=== PATIENT | male | born 1995 | race Two or more races ===

== ENCOUNTER 2017-10-07 21:42 | Emergency (ER) | payer MEDICAID ==
[~2017-10-07] VITALS: Ht 172.7 cm; Wt 81.6 kg
--- NOTE | 2017-10-07 21:50 | Emergency Room Report ---
History of Present Illness General Source: Patient Present Illness HPI Is a 21-year-old male with no past medical history. She presents with chief complaint of left leg pain. Onset was acute. He went home and locked himself out so he try to climb on the roof to get inside the house. He slipped and fell onto the concrete pavement. He did not hit his head. He landed with his leg bent on the side. He complaining of pain to the lower extremity. Unable to bear weight. No other injury. Pain is 9 out of 10. Better with holding still. Worse with movement. Allergies: Coded Allergies: No Known Allergies (Unverified , 10/07/17) Patient History Past Medical History: none, see triage record, old chart reviewed Past Surgical History: none Pertinent Family History: none Social History: Denies: smoking Immunizations: other Reviewed Nursing Documentation: PMH: Agreed; PSxH: Agreed Review of Systems Eye: Denies: eye pain, blurred vision ENT: Denies: ear pain, nose congestion, throat swelling Respiratory: Denies: cough, shortness of breath Cardiovascular: Denies: chest pain, palpitations Gastrointestinal: Denies: abdominal pain, diarrhea, nausea, vomiting Musculoskeletal: Reports: joint pain; Denies: back pain Skin: Denies: rash Neurological: Denies: headache, numbness Endocrine: Denies: increased thirst, increased urine Hematologic/Lymphatic: Denies: easy bruising All Other Systems: negative except mentioned in HPI Physical Exam vitals unremarkable Sp02 EP Interpretation: reviewed, normal General Appearance: well appearing, no apparent distress, alert Head: normocephalic, atraumatic Eyes: bilateral eye PERRL, bilateral eye EOMI ENT: hearing grossly normal, normal pharynx Neck: full range of motion, supple, no meningismus Respiratory: chest non-tender, lungs clear, normal breath sounds Cardiovascular #1: regular rate, rhythm, no murmur Gastrointestinal: normal bowel sounds, non tender, no mass, no organomegaly, no bruit, non-distended Musculoskeletal: back normal, normal range of motion, other - Left lower leg: No tenderness to the knee or the ankle. He has tenderness and deformity and edema to the distal fibular area. Sensation normal. Psychiatric: mood/affect normal Skin: warm/dry Procedures Splinting Splinting : Consent: Verbal Location: left lower l Hand-Made Type: plaster Splint: sugar-tong Pre-Proc Neuro Vasc Exam: normal Post-Proc Neuro Vasc Exam: normal Patient Tolerated: Well Complications: None Progress patient also had a short leg posterior splint done in addition a sugar tong splint. Crutches given. Medical Decision Making Diagnostic Impression: Primary Impression: Fibula fracture Qualified Codes: S82.832A - Other fracture of upper and lower end of left fibula, initial encounter for closed fracture ER Course Patient with a fall and the distal fibular fracture. Patient splinted and will be discharged home with orthopedic follow-up. No evidence of any knee or ankle injury. No head injury. Other X-Ray Diagnostic Results Other X-Ray Diagnostic Results : X-Ray ordered: left tib-fib x-rays # of Views/Limited Vs Complete: 2 View Indication: Pain Interpretation: no dislocation, no soft tissue swelling, other - distal fibular fracture Impression: Other - distal fib frx. Electronically Signed by: Osmel Parish MD Status: improved Disposition: HOME, SELF-CARE Condition: Stable Scripts Ibuprofen* (MOTRIN*) 600 Mg Tablet 600 MG ORAL THREE TIMES A DAY, #30 TAB 0 Refills Prov: OSMEL PARISH M.D. 10/07/17 Hydrocodone/Acetaminophen 5-325* (HYDROCODONE/ACETAMINOPHEN 5-325*) 1 Each Tablet 1 TAB ORAL Q6H PRN for For Pain, #30 TAB 0 Refills Prov: OSMEL PARISH M.D. 10/07/17 Additional Instructions: Follow-up with orthopedic DrRazia within a week. Nonweightbearing. Ice pack to the area. Return if symptom worsen. OSMEL PARISH M.D. Oct 07, 2017 21:50
[2017-10-07] MEDS ORDERED: Norco 5mg/325mg tab ORAL ONE (22:00)
--- NOTE | 2017-10-07 22:23 | Diagnostic Imaging Report ---
EXAM: XR Left Tibia and Fibula, 2 Views CLINICAL HISTORY: TRAUMA TECHNIQUE: Frontal and lateral views of the left tibia and fibula. COMPARISON: No relevant prior studies available. FINDINGS: Bones/joints: Oblique fracture through the distal shaft of the fibula with 8 mm of lateral displacement of the distal fracture fragment. Non- displaced fracture of the medial malleolus. No dislocation. Soft tissues: Mild soft tissue swelling about the fractures. No radiopaque foreign body. IMPRESSION: 1. Oblique fracture through the distal shaft of the fibula with 8 mm of lateral displacement of the distal fracture fragment. 2. Non-displaced fracture of the medial malleolus.
[2017-10-07] MEDS ORDERED: HYDROCODON-ACE1 EA15 ORAL (22:26)
[2017-10-07] MEDS ORDERED: IBUPROFEN600 MG ORAL (22:26)
[2017-10-07 23:00] VITALS: BP 134/81
== END 2017-10-07 23:10 | disposition home or self-care (01) ==
LOC: EDBD 21:42 → EMR 23:02
DX: S82.832A Other fracture of upper and lower end of left fibula, initial encounter for closed fracture (principal); W01.0XXA Fall on same level from slipping, tripping and stumbling without subsequent striking against object, initial encounter; Y93.9 Activity, unspecified; Y92.009 Unspecified place in unspecified non-institutional (private) residence as the place of occurrence of the external cause
CPT/HCPCS: 29515; 96372; 99283